=== PATIENT | male | born 2000 | race African-American/Black ===

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

== ENCOUNTER 2021-10-05 22:25 | Emergency (ER) | payer SELFPAY ==
[2021-10-05 23:36] LABS: Bacteria/HPF None Seen HPF (None Seen); Bilirubin Negative (Negative); Blood, Urine Trace (Negative); Clarity Turbid (Clear); Glucose, Urine (Dipstick) Normal (Negative); Ketone, Urine Negative (Negative); Leukocyte 500 Leu/uL (Negative); Mucous/LPF 2+ LPF (<2+); Nitrite Negative (Negative); Protein, Urine (Dipstick) 20 mg/dL (Neg-Trace); Specific Gravity, Urine 1.031 (1.002-1.036); Squamous Epithelial 0-3 HPF (0-3); Urobilinogen Normal mg/dL (Less than 2); WBC/HPF Greater than 50 HPF (0-3); pH, Urine 6.5 (5.0-9.0)
[2021-10-05] MEDS ORDERED: Lidocaine 1% PF 5 ML VIAL ONE (23:46)
[2021-10-05] MEDS ORDERED: cefTRIAXone\\ROCEPHIN 500 MG VIAL ONE (23:46)
[2021-10-06 17:09] LABS: Chlam.trachomatis by PCR,Urine DETECTED (NotDetected)
== END 2021-10-06 00:25 | disposition home or self-care (01) ==
LOC: ERS 22:25
DX: R30.0 Dysuria (principal)
CPT/HCPCS: 81003; 81015; 87086; 87491; 87591; 96372; 99283; J0696

== ENCOUNTER 2023-01-15 12:32 | Emergency (ER) | payer SELFPAY | END 2023-01-15 14:48 | disposition home or self-care (01) | LOC: ERS 12:32 | DX: S62.336A Displaced fracture of neck of fifth metacarpal bone, right hand, initial encounter for closed fracture (principal); W10.9XXA Fall (on) (from) unspecified stairs and steps, initial encounter | CPT/HCPCS: 29125 ==